=== PATIENT | female | born 1970 | race African-American/Black ===

== ENCOUNTER 2022-01-09 10:34 | Inpatient (IN) | payer OTHER ==
[~2022-01-09] VITALS: Ht 170.2 cm; Wt 71.0 kg
[2022-01-09 12:10] LABS: BASOPHILS % 0.5 % (0.0-2.0); EOSINOPHILS % 0.9 % (0.0-5.0); HEMATOCRIT. 39.3 % (36.0-48.0); HEMOGLOBIN. 13.3 g/dL (12.0-16.0); LYMPHOCYTES % 47.8 % (20.0-50.0); MEAN CORPUSCULAR HEMOGLOBIN 29.6 pg (28.0-32.0); MEAN CORPUSCULAR VOLUME 87.7 fL (81.0-99.0); MEAN PLATELET VOLUME 7.7 fl (7.4-10.4); MONOCYTES % 6.9 % (2.0-8.0); NEUTROPHILS % 43.9 % (40.0-76.0); PLATELET 250 x1000/uL (130-400); RED BLOOD CELL COUNT 4.48 mill/uL (4.2-5.4); RED CELL DISTRIBUTION WIDTH 13.3 % (11.6-14.6)
[2022-01-09 12:19] LABS: CHLORIDE 109 mEq/L (98-107)
[2022-01-09 15:17] LABS: CLARITY URINE CLEAR (CLEAR); COLOR URINE YELLOW (YELLOW); KETONES URINE NEGATIVE (NEGATIVE); LEUKOCYTE ESTERASE URINE NEGATIVE (NEGATIVE); NITRITE URINE NEGATIVE (NEGATIVE); OCCULT BLOOD URINE NEGATIVE (NEGATIVE); PROTEIN URINE NEGATIVE (NEGATIVE); UROBILINOGEN URINE 0.2 E.U./dL (0.2-1.0)
[2022-01-09 15:42] LABS: *AMPHETAMINES SCREEN URINE NEGATIVE (NEGATIVE); *BARBITURATES SCREEN URINE NEGATIVE (NEGATIVE); *BENZODIAZEPINES SCREEN URINE NEGATIVE (NEGATIVE); *COCAINE SCREEN URINE NEGATIVE (NEGATIVE); METHADONE URINE SCREEN NEGATIVE (NEGATIVE); OPIATES URINE SCREEN NEGATIVE (NEGATIVE); PHENCYCLIDINE URINE SCREEN NEGATIVE (NEGATIVE)
[2022-01-09 15:43] LABS: CANNABINOID URINE SCREEN NEGATIVE (NEGATIVE)
[2022-01-09] MEDS ORDERED: IOHEXOL-300 100 ML BOTTLE ONE (17:02)
[2022-01-09] MEDS ORDERED: MORPHINE SULFATE 4 MG/ML CPJ (NOT FOR IM USE) IV ONE (19:30)
[2022-01-10 04:00] VITALS: BP 128/77
[2022-01-10] MEDS ORDERED: AMLO5TAB88 PO (05:00)
[2022-01-10] MEDS ORDERED: ALBU90AE INH (05:00)
[2022-01-10] MEDS ORDERED: OMEP40CA20 PO (05:00)
[2022-01-10] MEDS ORDERED: CHOL400D7 PO (05:00)
[2022-01-10] MEDS ORDERED: LINA145C PO (05:00)
[2022-01-10] MEDS ORDERED: NAPR-681 PO (05:00)
[2022-01-10 05:23] VITALS: BP 128/77
[2022-01-10] MEDS ORDERED: CLONIDINE 0.1MG TABLET PO PRN (06:00)
[2022-01-10] MEDS ORDERED: ONDANSETRON HCL 4MG/2ML INJ IV PRN (06:00)
[2022-01-10] MEDS: MORPHINE SULFATE 2 MG/ML CPJ (NOT FOR IM USE) IV PRN ×2 (07:02→15:14)
[2022-01-10 08:00] VITALS: BP 131/79
[2022-01-10] MEDS ORDERED: AMLODIPINE 5MG TABLET PO SCH (09:00)
[2022-01-10] MEDS ORDERED: PANTOPRAZOLE SODIUM 40 MG/VIAL IV SCH (09:00)
[2022-01-10] MEDS: DEXT 5%/0.45% NACL KCL 20MEQ/L 1,000 ML IV SCH ×2 (09:13→16:40)
[2022-01-10] MEDS ORDERED: LACTULOSE 20G/30ML UDC PO NR ×2 (09:15→11:15)
[2022-01-10] MEDS ORDERED: *PATIENT'S OWN MEDICATION STORAGE XX SCH (09:30)
[2022-01-10] MEDS ORDERED: NALOXONE HCL 0.4MG/ML VIAL IV PRN (09:30)
[2022-01-10] MEDS ORDERED: NA PHOS,M-B/NA PHOS,DI-BA ENEMA 118ML PR NR (11:15)
[2022-01-10 12:00] VITALS: BP 147/87
[2022-01-10 15:01] VITALS: BP 147/87
[2022-01-10 15:50] LABS: BASOPHILS % 0.2 % (0.0-2.0); EOSINOPHILS % 0.1 % (0.0-5.0); HEMATOCRIT. 41.1 % (36.0-48.0); HEMOGLOBIN. 13.7 g/dL (12.0-16.0); MEAN CORPUSCULAR HEMOGLOBIN 29.8 pg (28.0-32.0); MEAN CORPUSCULAR VOLUME 89.2 fL (81.0-99.0); MONOCYTES % 4.7 % (2.0-8.0); PLATELET 263 x1000/uL (130-400); RED BLOOD CELL COUNT 4.61 mill/uL (4.2-5.4); RED CELL DISTRIBUTION WIDTH 13.1 % (11.6-14.6)
[2022-01-10 16:00] VITALS: BP 128/78
[2022-01-10 16:08] LABS: CHLORIDE 107 mEq/L (98-107)
[2022-01-10] MEDS ORDERED: DOCUSATE SODIUM 100MG CAPSULE PO SCH (17:00)
== END 2022-01-10 19:00 | disposition short-term general hospital (02) | DRG 392 ==
LOC: ER 10:34 → MICUSO 01-10 01:30 → ENRESERV 01-10 03:08 → 8WST 01-10 03:21
PROVIDERS: ADMIT Internal Medicine; ATTEND Internal Medicine
DX: K59.09 Other constipation (principal); E86.0 Dehydration; G89.29 Other chronic pain; I10 Essential (primary) hypertension; M54.9 Dorsalgia, unspecified; K76.89 Other specified diseases of liver; Z20.822 Contact with and (suspected) exposure to COVID-19; Z79.899 Other long term (current) drug therapy; Z90.710 Acquired absence of both cervix and uterus; Z88.1 Allergy status to other antibiotic agents; Z88.5 Allergy status to narcotic agent; Z88.0 Allergy status to penicillin; Z88.8 Allergy status to other drugs, medicaments and biological substances; Z98.51 Tubal ligation status; Z98.891 History of uterine scar from previous surgery
CPT/HCPCS: 36415; 74018; 74177; 80053; 80305; 81003; 83605; 85025; 87426; 99285; C1893; C9113; J2270; J2405; Q9967